=== PATIENT | male | born 1995 | race American Indian/Alaskan Native ===

== ENCOUNTER 2021-05-13 12:49 | Emergency (ER) | payer SELFPAY ==
--- NOTE | 2021-05-13 17:59 | XRay Report ---
Left knee, 3 views HISTORY: Pain after injury COMPARISON: None FINDINGS: No acute fracture or malalignment. Small suprapatellar joint effusion, which is nonspecific but could reflect internal derangement. Signer Name: Martínez Santiago MD Signed: 05/13/2021 5:55 PM Workstation Name: [id number]
[2021-05-13 18:33] VITALS: BP 124/75
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
== END 2021-05-13 18:55 | disposition home or self-care (01) ==
LOC: ED 12:49
DX: M25.562 Pain in left knee (principal); M25.462 Effusion, left knee; F17.200 Nicotine dependence, unspecified, uncomplicated; W22.8XXA Striking against or struck by other objects, initial encounter; Y93.89 Activity, other specified; Y92.89 Other specified places as the place of occurrence of the external cause; Y99.8 Other external cause status
CPT/HCPCS: 99283